=== PATIENT | male | born 1990 | race Caucasian/White ===

== ENCOUNTER 2019-12-14 19:10 | Emergency (ER) | payer OTHER, SELFPAY ==
[2019-12-14 19:12] VITALS: BP 112/73; PULSE 98; RESP 19; TEMP 38.9; O2SAT 95; BMI 21.7
[2019-12-14] MEDS: Acetaminophen 500 MG Tablet 1000 MG PO (19:21)
[2019-12-14 20:05] VITALS: TEMP 38.4
--- NOTE | 2019-12-14 21:25 | RAD_ITS ---
HISTORY: COUGH, CHEST PAIN X YESTERDAY EXAM: XR Chest 2 Views: COMPARISON: None FINDINGS: # of images incl. paperwork: 2 Lungs are clear. Heart is not enlarged. No acute osseous pathology perceived. Pulmonary vascularity is distinct. No effusions. RAD/Chest PA and Lateral IMPRESSION: Normal. at 2222 Reported and signed by: Carmelo Peters MD Electronically Signed: Carmelo Peters MD at 22:21 EST Tel , Service support ,
[2019-12-14] MEDS: Ketorolac 30 MG/ML Syringe IV (21:39)
[2019-12-14] MEDS: 0.9% Normal Saline 1,000 ML 1000 ML IV (21:39)
[2019-12-14 21:41] VITALS: BP 108/66; PULSE 77; RESP 18; TEMP 37.1; O2SAT 95
[2019-12-14 21:47] LABS: Absolute Lymphocyte Count 1.13 X10^3/uL (0.83-4.51); Absolute Neutrophil Count 6.5 X10^3/uL (2.0-7.7); Basophil# 0.01 X10^3/uL; Basophil% 0.1 % (0-1); Eosinophil# 0.11 X10^3/uL; Eosinophils% 1.3 % (0-5); Hematocrit 39.8 % (40-54); Hemoglobin 14.2 g/dL (13.0-16.5); Lymphocyte # 1.13 X10^3/ul (4.0); Lymphocyte % 13.2 % (19-41); Mean Corp Hgb Conc 35.7 g/dL (32-36); Mean Corpuscular Hgb 31.6 pg (27.0-32.0); Mean Corpuscular Volume 88.6 fL (80-94); Mean Platelet Vol. 8.9 fl (6.2-12.0); Monocyte# 0.77 X10^3/uL; NRBC Flagged by Analyzer 0 % (0-5); Neutrophil # 6.52 X10^3/uL (2.7-7.7); Neutrophil % 76.2 % (47-70); POSITIVE MORPHOLOGY YES; Platelet Count 162 K/mm3 (150-450); RBC Distribution Width CV 11.5 % (11.6-14.6); RBC Distribution Width SD 36.8 fl (35.1-43.9); Red Blood Count 4.49 M/mm3 (4.6-6.2); White Blood Count 8.6 K/mm3 (4.4-11.0)
[2019-12-14 21:48] LABS: Mucous, Urine 0 SEEN /hpf (<or=2+); White Blood Cells 0 SEEN /hpf (0-5)
[2019-12-14 21:48] LABS: Differential Indicated SCAN CRITERIA MET
[2019-12-14 21:50] LABS: Color, Urine Yellow (Yellow); Glucose, Dipstick Normal (Normal); Ketone-Dipstick 5 mg/dl (Negative); Leukocyte Esterase-Dipstick Negative /ul (Negative); Nitrite-Dipstick Negative (Negative); Occult Blood-Urine Negative /ul (Negative); Protein-Dipstick Negative (Negative); Urine Bilirubin Dipstick Negative (Negative); Urine Clarity Sl. Cloudy (Clear); Urine Urobilinogen Normal (Normal); Urine pH 6.5 (5.0 - 8.0)
[2019-12-14 21:59] LABS: Bacteria 1+ /hpf (None Seen); Red Blood Cells-Urine 0-5 SEEN /hpf (0-5); Squamous Epithelial Cells - UA 0-5 SEEN /hpf (0-5)
[2019-12-14 22:02] LABS: Anion Gap 7 (5-15); BUN 7 mg/dL (7-18); BUN/Creat Ratio 8.1 RATIO (10-20); Calcium,Total 8.2 mg/dL (8.5-10.1); Chloride 100 mmol/L (98-107); Creatinine, Serum 0.86 mg/dL (0.70-1.30); EST Glomerular Filtration Rate 111 mL/min (>60); Est Glom Filt Rate - Afr Amer 134 mL/min (>60); Estimated Creatinine Clearance 121.87 ml/min; Glucose 120 mg/dL (74-106); Potassium 3.6 mmol/L (3.5-5.1); Sodium Level 132 mmol/L (136-145)
[2019-12-14 22:06] LABS: Differential Comment SCANNED
--- NOTE | 2019-12-14 22:07 | ED.DCSUM_ITS ---
- ER Visit Summary Date of Service: 12/14/19 Chief Complaint: [Fever and headache] History of Present Illness: The patient is a 29 M [presents to the emergency department with symptoms x4 days. Patient states that initially started with a sore throat but that since resolved. Patient complains of a mild cough as well as body aches. He had 2 episodes of vomiting yesterday. He denies any diarrhea. He denies sick contacts. Patient denies any recent travel. Patient has no medical history. Patient is not immunized.] Physical Examination: [HEENT-PERRLA, EOMI. Cranial nerves II through XII grossly intact. TMs clear. Mucous membranes moist. No adenopathy. Nuchal rigidity. Negative Kernig's and negative Brudzinski's Cardiovascular-regular rate and rhythm without murmur or ectopy Lungs-clear to auscultation, chest wall stable without crepitus or subcu emphysema Abdomen-normoactive bowel sounds, soft, nontender, no rebound or rigidity, no peritoneal signs. Extremities-intact ?4, normal range of motion, normal pulses, atraumatic] Test Results: [Influenza screen was negative. Chest x-ray was normal. CBC with differential showing of 8.6, hemoglobin 14, hematocrit 40, plates 162. Chemistries unremarkable. Urinalysis was normal.] Emergency Department Course and Treatment: [Patient was given a liter normal same fluid bolus. Patient given Toradol 30 mg IV and his headache mostly resolved.] Treatment Plan: [We will be given a prescription for naproxen. I suspect patient likely has a viral URI.] Disposition: [Discharged home in stable condition] Impression: [Viral URI] This note was generated with [employer] dictation software. It may contain incorrect words, spelling, and punctuation that were not noted in review of the chart prior to signing ED Disposition - Plan for ED Patient: Referrals: Care Physician,No Primary [Primary Care Provider] -
--- NOTE | 2019-12-14 22:20 | ED.DEP ---
ED Disposition - Plan for ED Patient: Instructions: FEBRILE ILLNESS, Uncertain Cause (Adult), URI, Viral, No Abx (Adult) Prescriptions: Naproxen [Naprosyn] 500 mg PO BID PRN #20 tab Prescription Printed Referrals: Care Physician,No Primary [Primary Care Provider] - Additional Instructions: See Dr. Saucedo in 3-5 days
[2019-12-14 22:36] VITALS: BP 94/66; PULSE 88; RESP 16; O2SAT 95
== END 2019-12-14 22:38 | disposition home or self-care (01) ==
PROVIDERS: Emergency Provider Emergency Medicine
DX: J06.9 Acute upper respiratory infection, unspecified (principal); Z72.0 Tobacco use
CPT/HCPCS: 71046; 80048; 81001; 85025; 87804; 96361; 96374; 99284; J7030